=== PATIENT | male | born 1980 | race Caucasian/White ===

== ENCOUNTER 2018-08-27 14:57 | Emergency (ER) | payer OTHER, SELFPAY ==
[~2018-08-27] VITALS: Ht 180.3 cm; Wt 94.0 kg
[2018-08-27 15:02] VITALS: BP 142/80
[2018-08-27] MEDS ORDERED: LIDOCAINE-MPF 1%, 5ML ONE (15:09)
[2018-08-27] MEDS ORDERED: DIPH,PERTUSS(ACELL),TET VAC/PF 0.5 ML IM-VACC ONE ×2 (15:23→15:30)
[2018-08-27] MEDS ORDERED: LIDOCAINE-MPF 1%, 5ML INFIL ONE (15:30)
== END 2018-08-27 15:55 | disposition home or self-care (01) ==
LOC: ED 15:40
DX: S61.210A Laceration without foreign body of right index finger without damage to nail, initial encounter (principal); X58.XXXA Exposure to other specified factors, initial encounter; Y93.89 Activity, other specified; Y92.69 Other specified industrial and construction area as the place of occurrence of the external cause; Y99.0 Civilian activity done for income or pay
CPT/HCPCS: 12001; 90471; 90715; 99283